=== PATIENT | female | born 1975 | race Caucasian/White ===

== ENCOUNTER 2017-04-06 08:58 | Emergency (ER) | payer BC ==
[2017-04-06 09:12] VITALS: BP 114/96
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
[2017-04-06] MEDS ORDERED: HYDROmorphone 1 MG/ML Syringe IVPUSH ONE (10:59)
[2017-04-06] MEDS ORDERED: Ondansetron 4 MG/2 ML SDV IV ONE (10:59)
[2017-04-06] MEDS ORDERED: Sodium Chloride 0.9% 10 ML Syringe FLUSH PRN (11:00)
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
== END 2017-04-06 11:50 | disposition home or self-care (01) ==
LOC: DL.ED 08:58
DX: S80.02XA Contusion of left knee, initial encounter (principal); S40.021A Contusion of right upper arm, initial encounter; Z88.6 Allergy status to analgesic agent; Z88.5 Allergy status to narcotic agent; Z79.899 Other long term (current) drug therapy; V86.59XA Driver of other special all-terrain or other off-road motor vehicle injured in nontraffic accident, initial encounter; Y93.F1 Activity, caregiving, bathing
CPT/HCPCS: 71250; 72100; 72125; 72128; 73060; 73521; 73562; 96374; 96375; 99284; J1170; J2405; J7050

== ENCOUNTER 2017-06-27 10:02 | Emergency (ER) | payer BC ==
[2017-06-27 10:16] VITALS: BP 125/88
--- NOTE | 2017-06-27 10:50 | EDM.PDOC ---
ED HPI GENERAL MEDICAL PROBLEM - General Chief Complaint: Upper Extremity Injury/Pain Stated Complaint: FELL, RT SHOULDER Time Seen by Provider: 06/27/17 10:21 Source of Information: Reports: Patient, RN, RN Notes Reviewed History Limitations: Reports: No Limitations - History of Present Illness INITIAL COMMENTS - FREE TEXT/NARRATIVE: Pt presents to the ER with c/o right shoulder pain. She states she fell last night on the right shoulder about 8:00pm. She states she was able to move it throughout the night, but this morning has less range of motion. She states her pain is 2/10 in the shoulder and upper humerus when sitting and resting, and the pain intensifies to 10/10 with movement. Onset: Sudden Onset Date: 06/26/17 Location: Reports: Upper Extremity, Right Quality: Reports: Sharp, Throbbing Severity: Moderate Improves with: Reports: Rest Worsens with: Reports: Movement Associated Symptoms: Reports: No Other Symptoms Right Shoulder Pain Score (Numeric/FACES): 2 - Related Data Allergies Allergy/AdvReac Type Severity Reaction Status Date / Time hydrocodone Allergy Rash Verified 06/27/17 10:09 ibuprofen Allergy Rash Verified 06/27/17 10:09 environmental related Allergy Cannot Uncoded 10/21/16 11:29 Remember Home Meds: Home Meds Cetirizine HCl [Zyrtec] 10 mg PO DAILY PRN 10/21/16 [History] Acetaminophen with Codeine [Tylenol with Codeine #3 Tablet] 1 tab PO BID [History] Gabapentin [Neurontin] 100 mg PO BID 06/27/17 [History] Zolpidem Tartrate [Zolpidem Tartrate] 10 mg PO BEDTIME 06/27/17 [History] Past Medical History HEENT History: Reports: Impaired Vision Musculoskeletal History: Reports: Neck Pain, Chronic - Past Surgical History GI Surgical History: Reports: Cholecystectomy Female Surgical History: Reports: Hysterectomy Musculoskeletal Surgical History: Reports: Other (See Below) Other Musculoskeletal Surgeries/Procedures:: neck surgery Social & Family History - Family History Family Medical History: Noncontributory - Tobacco Use Smoking Status *Q: Current Every Day Smoker Years of Tobacco use: 26 Packs/Tins Daily: 1 Second Hand Smoke Exposure: Yes - Caffeine Use Caffeine Use: Reports: Coffee - Alcohol Use Days Per Week of Alcohol Use: 2 Number of Drinks Per Day: 5 Total Drinks Per Week: 10 Date of Last Drink: 06/26/17 - Recreational Drug Use Recreational Drug Use: No Review of Systems - Review of Systems Review Of Systems: ROS reveals no pertinent complaints other than HPI. ED EXAM, GENERAL - Physical Exam Exam: See Below Exam Limited By: No Limitations General Appearance: Alert, WD/WN, Mild Distress Eye Exam: Bilateral Eye: EOMI, Normal Inspection Ears: Normal External Exam, Hearing Grossly Normal Nose: Normal Inspection Throat/Mouth: Normal Inspection, Normal Voice, No Airway Compromise Head: Atraumatic, Normocephalic Neck: Normal Inspection, Limited Range of Motion Respiratory/Chest: No Respiratory Distress, Lungs Clear, Normal Breath Sounds, No Accessory Muscle Use, Chest Non-Tender Cardiovascular: Normal Peripheral Pulses, Regular Rate, Rhythm, No Edema, No Gallop, No JVD, No Murmur, No Rub Peripheral Pulses: 2+: Radial (L), Radial (R) GI/Abdominal: Normal Bowel Sounds, Soft, Non-Tender, No Organomegaly, No Distention, No Abnormal Bruit, No Mass (Female) Exam: Deferred Rectal (Female) Exam: Deferred Back Exam: Normal Inspection, Full Range of Motion Extremities: Normal Inspection, No Pedal Edema, Normal Capillary Refill, Arm Pain, Limited Range of Motion Neurological: Alert, Oriented, CN II-XII Intact, Normal Cognition, Normal Gait, Normal Reflexes, No Motor/Sensory Deficits Psychiatric: Normal Affect, Normal Mood, Tearful Skin Exam: Warm, Dry, Intact, Normal Color, No Rash Lymphatic: No Adenopathy Course - Vital Signs Last Recorded V/S: Last Vital Signs Temp 98.0 F 06/27/17 10:13 Pulse 111 H 06/27/17 10:13 Resp 20 06/27/17 10:13 BP 125/88 06/27/17 10:13 Pulse Ox 99 06/27/17 10:13 - Orders/Labs/Meds Orders: Active Orders 24 hr Category Date Time Status Humerus Rt [CR] Urgent Exams 06/27/17 10:27 Taken Shoulder Comp Rt [CR] Urgent Exams 06/27/17 10:27 Taken Orphenadrine [Norflex] Med 06/27/17 11:30 Ordered 60 mg IM Q12H - Radiology Interpretation Free Text/Narrative:: Right shoulder xray: No acute findings Right humerus xray: No acute findings See rad report Departure - Departure Time of Disposition: 11:18 Disposition: Home, Self-Care 01 Condition: Fair Clinical Impression: Sprain of shoulder Qualifiers: Encounter type: initial encounter Shoulder sprain type: unspecified sprain Laterality: right Qualified Code(s): S43.401A - Unspecified sprain of right shoulder joint, initial encounter - Discharge Information Instructions: Shoulder Pain, [id number] Forms: ED Department Discharge Additional Instructions: RX: Norflex Rest, Ice, Heat Slow movements to keep moving, but not further inflammation. - My Orders Last 24 Hours: My Active Orders 06/27/17 10:27 Humerus Rt [CR] Urgent Shoulder Comp Rt [CR] Urgent 06/27/17 11:30 Orphenadrine [Norflex] 60 mg IM Q12H - Assessment/Plan Last 24 Hours: My Active Orders 06/27/17 10:27 Humerus Rt [CR] Urgent Shoulder Comp Rt [CR] Urgent 06/27/17 11:30 Orphenadrine [Norflex] 60 mg IM Q12H
== END 2017-06-27 11:30 | disposition home or self-care (01) ==
LOC: DL.ED 10:02
DX: S43.401A Unspecified sprain of right shoulder joint, initial encounter (principal); F17.210 Nicotine dependence, cigarettes, uncomplicated; Z88.5 Allergy status to narcotic agent; Z88.8 Allergy status to other drugs, medicaments and biological substances; Z79.899 Other long term (current) drug therapy; W19.XXXA Unspecified fall, initial encounter
CPT/HCPCS: 73030; 73060; 96372; 99283; J2360